=== PATIENT | female | born 1940 | race Caucasian/White ===

== ENCOUNTER 2016-06-09 19:29 | Emergency (ER) | payer MEDICARE, OTHER ==
[2016-06-09] MEDS ORDERED: IBUPROFEN 400 MG TABLET PO STA (21:47)
[2016-06-09] MEDS ORDERED: IBUPROFEN 400 MG TABLET PO ONE (21:52)
[2016-06-09] MEDS ORDERED: DEXAMETHASONE 10 MG/ML VIAL PO STA (23:12)
[2016-06-09] MEDS ORDERED: DEXAMETHASONE 10 MG/ML VIAL ONE (23:15)
== END 2016-06-09 23:20 | disposition home or self-care (01) ==
DX: M54.5 Low back pain (principal); W18.39XA Other fall on same level, initial encounter; Y92.009 Unspecified place in unspecified non-institutional (private) residence as the place of occurrence of the external cause; E78.00 Pure hypercholesterolemia, unspecified; E03.9 Hypothyroidism, unspecified; M19.90 Unspecified osteoarthritis, unspecified site
CPT/HCPCS: 72100; 99283; 99284; A9270

== ENCOUNTER 2016-06-17 11:45 | Outpatient (CLI) | payer MEDICARE, OTHER | END 2016-06-17 11:46 | DX: R31.9 Hematuria, unspecified (principal); R32 Unspecified urinary incontinence ==

== ENCOUNTER 2016-06-17 13:48 | Outpatient (CLI) | payer MEDICARE, OTHER | END 2016-06-17 13:49 | disposition home or self-care (01) | DX: M47.816 Spondylosis without myelopathy or radiculopathy, lumbar region (principal); M47.817 Spondylosis without myelopathy or radiculopathy, lumbosacral region; M51.36 Other intervertebral disc degeneration, lumbar region; M51.37 Other intervertebral disc degeneration, lumbosacral region ==

== ENCOUNTER 2016-08-21 13:11 | Outpatient (CLI) | payer MEDICARE, OTHER | END 2016-08-21 13:12 | disposition home or self-care (01) | DX: R31.9 Hematuria, unspecified (principal) ==

== ENCOUNTER 2016-09-30 13:23 | Emergency (ER) | payer MEDICARE, OTHER ==
--- NOTE | 2016-09-30 13:32 | ED Physician Documentation ---
PD HPI ALTERED MENTAL STATUS - Stated complaint Stated Complaint: SHAKY/HEADACHE - History obtained from History obtained from: Patient, Family - History of Present Illness Timing - onset: How many days ago (1 1/2 days ago (Wednesday night) while in kitchen doing dishes, had onset of expressive aphasia. She knew what she wanted to say bu could not get words out. Lasted about 10-15 minutes, then improved. Had onset of some headache after that. No visual changes, no focal weaknesses, no further problems talking. Continues with some headache today, called PMD and was told to come to ED.) Timing - duration: Minutes (10-15) Timing - details: Abrupt onset, Now resolved Quality / character: Other (trouble speaking and felt some confused from just few minutes.) Associated symptoms: Headache (continues the past 1 1/2 days.). No: Fever, Stiff neck, Cough, NVD, General weakness, Focal weakness Contributing factors: No: Anticoagulated, Diabetic, New medication, Recent illness, Recent injury Basline status: Alert and oriented X 3, Ambulatory Similar symptoms before: Has not had sx before Recently seen: Not recently seen Review of Systems Ten Systems: 10 systems reviewed and negative Constitutional: denies: Fever, Chills Nose: denies: Rhinorrhea / runny nose, Congestion Throat: denies: Sore throat Cardiac: denies: Chest pain / pressure, Palpitations Respiratory: denies: Dyspnea, Cough GI: denies: Abdominal Pain, Nausea, Vomiting, Diarrhea : denies: Dysuria, Frequency Skin: denies: Rash, Lesions Musculoskeletal: denies: Neck pain, Back pain Neurologic: reports: Headache. 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, Hysterectomy HEENT: Cataracts - Present Medications Home Medications: Ambulatory Orders Medication Instructions Recorded Confirmed Levothyroxine Sodium 137 mcg PO DAILY 08/29/15 09/30/16 Metoprolol Succinate 50 mg PO DAILY 08/29/15 09/30/16 Pravastatin Sodium 20 mg PO DAILY 08/29/15 09/30/16 Venlafaxine HCl 37.5 mg PO DAILY 08/29/15 09/30/16 - Allergies Allergies/Adverse Reactions: Allergies Allergy/AdvReac Type Severity Reaction Status Date / Time codeine Allergy Nausea Verified 08/30/15 07:44 carola Allergy Severe Unknown Uncoded 08/30/15 07:44 - Living Situation Living Situation: reports: With family Living Arrangement: reports: At home - Social History Does the pt smoke?: No Does the pt drink ETOH?: No Does the pt have substance abuse?: No - Family History Family history: reports: Non contributory PD ED PE NORMAL - Vitals Vital signs reviewed: Yes - General General: Alert and oriented X 3, No acute distress, Well developed/nourished, Other - HEENT HEENT: Atraumatic, PERRL, EOMI, Ears normal, Pharynx benign - Neck Neck: Supple, no meningeal sign, No adenopathy, No JVD - Cardiac Cardiac: RRR, No murmur - Respiratory Respiratory: Clear bilaterally - Abdomen Abdomen: Soft, Non tender - Female Female : Deferred - Rectal Rectal: Deferred - Back Back: No CVA TTP - Derm Derm: Normal color, Warm and dry - Extremities Extremities: No tenderness to palpate, No edema, No calf tenderness / cord - Neuro Neuro: Alert and oriented X 3, dining room host 2-12 intact, No motor deficit, No sensory deficit, Normal speech, Other - Psych Psych: Normal mood, Normal affect Results - Vitals Vitals: Vital Signs - 24 hr 09/30/16 09/30/16 09/30/16 13:26 16:26 18:26 Temperature 36.9 C 36.7 C Heart Rate 72 65 60 Respiratory 19 18 18 Rate Blood Pressure 110/66 102/60 113/78 O2 Saturation 94 94 98 Oxygen O2 Source Room air - Labs Labs: Laboratory Tests 09/30/16 09/30/16 09/30/16 13:32 14:01 14:01 WBC 7.6 RBC 4.20 Hgb 13.9 Hct 40.4 MCV 96.1 MCH 33.1 H MCHC 34.5 RDW 13.3 Plt Count 330 MPV 6.8 L Neut # 4.3 Lymph # 2.0 Wagoner # 0.7 Eos # 0.5 Baso # 0.1 Absolute Nucleated RBC 0.00 Nucleated RBCs 0.0 ESR 10 Sodium Potassium Chloride Carbon Dioxide Anion Gap BUN Creatinine Estimated GFR (MDRD) Glucose POC Whole Bld Glucose 109 H Calcium Magnesium Total Bilirubin AST ALT Alkaline Phosphatase Total Protein Albumin Globulin Albumin/Globulin Ratio Lipase 09/30/16 14:01 WBC RBC Hgb Hct MCV MCH MCHC RDW Plt Count MPV Neut # Lymph # Wagoner # Eos # Baso # Absolute Nucleated RBC Nucleated RBCs ESR Sodium 136 Potassium 4.3 Chloride 104 Carbon Dioxide 24 Anion Gap 8.0 BUN 19 Creatinine 0.7 Estimated GFR (MDRD) 82 L Glucose 88 POC Whole Bld Glucose Calcium 9.2 Magnesium 2.1 Total Bilirubin 0.5 AST 27 ALT 18 Alkaline Phosphatase 77 Total Protein 6.6 L Albumin 4.0 Globulin 2.6 Albumin/Globulin Ratio 1.5 Lipase 74 H - Rads (name of study) head CT Radiology: Prelim report reviewed (no acute process) Brain MRI Radiology: Prelim report reviewed (No acute infarct, mass, other findings acute. Microvascular disease and small old lacunar infarct noted. ) PD MEDICAL DECISION MAKING - ED course Complexity details: reviewed results (CT normal, so consider TIA. But with headache since the time, would be concerned for smaller site. Can get MRI with contrast to evaluate for lacunar stroke, other lesions (MS, etc).), considered differential, d/w patient Departure - Departure Disposition: 01 Home, Self Care Clinical Impression: TIA (transient ischemic attack) Qualifiers: Transient cerebral ischemia type: unspecified Qualified Code(s): G45.9 - Transient cerebral ischemic attack, unspecified Headache Qualifiers: Headache type: unspecified Headache chronicity pattern: acute headache Intractability: not intractable Qualified Code(s): R51 - Headache Condition: Stable Record reviewed to determine appropriate education?: Yes Instructions: ED Cephalgia Unspecified, ED Transient Ischemic Attack Follow-Up: Alyssa Ross PA-C [Primary Care Provider] - Comments: Increase your aspirin from one to two baby aspirins daily. Follow up PCP next week, call tomorrow for an appt. Tylenol if needed for headache. Discharge Date/Time: 09/30/16 18:32
[2016-09-30] MEDS ORDERED: ACETAMINOPHEN 325 MG TABLET PO STA (13:59)
[2016-09-30] MEDS ORDERED: ACETAMINOPHEN 325 MG TABLET PO ONE (14:03)
[2016-09-30 14:18] LABS: BASOPHILS # (AUTO) 0.1 10^3/uL (0.0-0.1); BASOPHILS % (AUTO) 1.2 %; EOSINOPHILS # (AUTO) 0.5 10^3/uL (0.0-0.7); EOSINOPHILS % (AUTO) 6.3 %; HCT - HEMATOCRIT 40.4 % (37.0-47.0); HGB - HEMOGLOBIN 13.9 g/dL (12.0-16.0); LYMPHOCYTES % (AUTO) 26.8 %; MEAN CORPUSCULAR HEMOGLOBIN 33.1 pg (27.0-31.0); MEAN CORPUSCULAR HGB CONC 34.5 g/dL (32.0-36.0); MEAN CORPUSCULAR VOLUME 96.1 fL (81.0-99.0); MEAN PLATELET VOLUME 6.8 fL (7.9-10.8); MONOCYTES # (AUTO) 0.7 10^3/uL (0.0-1.0); MONOCYTES % (AUTO) 8.8 %; NEUTROPHILS # (AUTO) 4.3 10^3/uL (1.5-6.6); NEUTROPHILS % (AUTO) 56.9 %; RED CELL DISTRIBUTION WIDTH 13.3 % (12.0-15.0); UNCORRECTED WHITE BLOOD COUNT 7.6 x10^3/uL; WHITE BLOOD COUNT 7.6 x10^3/uL (4.8-10.8)
[2016-09-30 14:30] LABS: ALBUMIN/GLOBULIN RATIO 1.5 (1.0-2.2); BILIRUBIN,TOTAL 0.5 mg/dL (0.2-1.0); CALCIUM 9.2 mg/dL (8.5-10.3); CREATININE 0.7 mg/dL (0.4-1.0); MAGNESIUM 2.1 mg/dL (1.7-2.8); POTASSIUM 4.3 mmol/L (3.5-5.0); TOTAL PROTEIN 6.6 g/dL (6.7-8.2)
--- NOTE | 2016-09-30 14:39 | CT Preliminary Report ---
Exam: CT Head W/O IMPRESSION: Generalized age-related cortical atrophic changes without evidence of acute intracranial abnormality. [facility] SITE ID: [id number]
--- NOTE | 2016-09-30 14:41 | CT Report ---
EXAM: CT HEAD EXAM DATE: 09/30/2016 02:26 PM. CLINICAL HISTORY: Headache and aphasia 2 days ago. COMPARISON: None. TECHNIQUE: Multiaxial CT images were obtained from the foramen magnum to the vertex. IV contrast: Non e. Reformats: Coronal. In accordance with CT protocol optimization, one or more of the following dose reduction techniques w ere utilized for this exam: automated exposure control, adjustment of mA and/or KV based on patient s ize, or use of iterative reconstructive technique. FINDINGS: Parenchyma: No intraparenchymal hemorrhage. No evidence of mass, midline shift, or CT findings of acu te infarction. Escudero-white differentiation is distinct. Extraaxial Spaces: Normal for age. No subdural or epidural collections. Ventricles: The ventricles and cortical sulci are enlarged, consistent with age-related tissue loss. Sinuses: Imaged paranasal sinuses, orbits, and mastoids show no significant abnormality. Bones: Unremarkable. Other: Mild chronic microangiopathic white matter changes. IMPRESSION: Generalized age-related cortical atrophic changes without evidence of acute intracranial abnormality. [facility] Referring Provider Line: [phone] SITE ID: [id number]
--- NOTE | 2016-09-30 17:50 | MRI Preliminary Report ---
Exam: MRI Brain W/WO Impression: No acute infarct, mass lesion, or other discrete acute parenchymal process identified. There are find ings of small vessel angiopathy and prior lacunar infarcts. SITE ID: [id number]
--- NOTE | 2016-09-30 17:52 | MRI Report ---
EXAM: MRI BRAIN WITHOUT CONTRAST COMPARISON: CT head, 09/30/2016. CLINICAL HISTORY: Headache TECHNIQUE: Multiplanar multisequence imaging is performed through the head without contrast. FINDINGS: Diffusion-weighted imaging shows no acute infarct. Gradient sequence shows no evident prior parenchymal hemorrhage. T2 FLAIR imaging shows multifocal white matter T2 prolongation, no mass lesions. Ventricular size is normal. Vascular flow voids which are unremarkable. Pituitary fossa, clivus and foramen magnum are unremarkable. No calvarial signal abnormality. Visualized orbits, paranasal sinuses and mastoids are unremarkable. No abnormal elevated T2 signal in the vessels. Impression: No acute infarct, mass lesion, or other discrete acute parenchymal process identified. There are find ings of small vessel angiopathy and prior lacunar infarcts. Referring Provider Line: [phone] SITE ID: [id number]
[2016-09-30] MEDS ORDERED: ASPIRIN CHEW 81 MG TABLET PO STA (18:19)
[2016-09-30] MEDS ORDERED: KETOROLAC 60 MG/2 ML VIAL IVP STA (18:19)
[2016-09-30] MEDS ORDERED: ASPIRIN CHEW 81 MG TABLET ONE (18:21)
[2016-09-30] MEDS ORDERED: KETOROLAC 30 MG/ML VIAL ONE (18:21)
[2016-09-30 18:27] VITALS: BP 113/78
== END 2016-09-30 18:32 | disposition home or self-care (01) ==
LOC: ED 13:23
DX: G45.9 Transient cerebral ischemic attack, unspecified (principal); R51 Headache; E03.9 Hypothyroidism, unspecified
CPT/HCPCS: 36415; 70450; 70553; 80053; 83690; 83735; 85025; 85651; 93005; 96374; 99283; 99285; A9270

== ENCOUNTER 2016-10-02 10:23 | Outpatient (CLI) | payer MEDICARE, OTHER | END 2016-10-02 10:24 | disposition home or self-care (01) | LOC: LAB.R 10:23 | PROVIDERS: ATTEND Physician Assistant Medical | DX: E03.9 Hypothyroidism, unspecified (principal); Z79.899 Other long term (current) drug therapy | CPT/HCPCS: 84443 ==

== ENCOUNTER 2016-11-03 10:17 | Outpatient (CLI) | payer MEDICARE, OTHER ==
--- NOTE | 2016-11-06 07:22 | Mammography Report ---
DIGITAL BILATERAL SCREENING MAMMOGRAM: 11/03/2016 CLINICAL HISTORY: A 76-year-old female in for routine screening mammogram. Patient does not know he r family history. She was adopted. Patient has had no breast surgeries. COMPARISON: 01/06/2012, 03/07/2013, 11/09/2014, 11/04/2015 TECHNIQUE: Craniocaudad and oblique lateral views of each breast were obtained with Hologic Full Fie ld digital mammography. FINDINGS: Heterogeneously dense breasts are noted bilaterally. A 1.4 cm rounded asymmetrical densit y is noted in the 6 o'clock position of the right breast 2.5 cm inferior to the nipple. This area ap pears minimally progressive in size as compared to preceding exams. Recommend patient return for con ed-down compression craniocaudad and oblique lateral view as well as a mediolateral view for further evaluation. Also recommend a right breast ultrasound be obtained for further evaluation. No significant clusters of calcification are detected in the breasts. No additional changes are seen . IMPRESSION: A 1.4 CM ASYMMETRICAL DENSITY IS NOTED IN THE 6 O'CLOCK POSITION OF THE RIGHT BREAST. T HIS AREA APPEARS MILDLY PROGRESSIVE COMPARED TO PRECEDING EXAMS. RECOMMEND PATIENT RETURN FOR ADD ITIONAL VIEWS OF THE RIGHT BREAST AND RIGHT BREAST ULTRASOUND FOR FURTHER EVALUATION. BIRADS CATEGORY 0 - INCOMPLETE. NEEDS ADDITIONAL IMAGING EVALUATION. ADDITIONAL VIEWS OF THE RIGHT BREAST AND RIGHT BREAST ULTRASOUND. STANDARD QUALIFYING STATEMENTS 1. This examination was reviewed with the aid of Computer-Aided Detection (CAD). 2. A negative or benign imaging report should not delay biopsy if clinically suspicious findings are present. Consider surgical consultation if warranted. More than 5% of cancers are not identified by i maging. 3. Dense breasts may obscure an underlying neoplasm. JOB #: [id number] EXT JOB #:[id number]
== END 2016-11-03 10:18 | disposition home or self-care (01) ==
LOC: DI.S 10:17
PROVIDERS: ATTEND Physician Assistant Medical
DX: Z12.31 Encounter for screening mammogram for malignant neoplasm of breast (principal); N63 Unspecified lump in breast
CPT/HCPCS: 77067

== ENCOUNTER 2016-11-13 19:21 | Emergency (ER) | payer MEDICARE, OTHER ==
[2016-11-13] MEDS ORDERED: ACETAMINOPHEN 325 MG TABLET PO STA (21:32)
[2016-11-13] MEDS ORDERED: ACETAMINOPHEN 325 MG TABLET PO ONE (21:36)
--- NOTE | 2016-11-13 22:25 | CT Preliminary Report ---
Exam: CT Temporal Bones W/O IMPRESSION: 1. Interval development of acute right otitis externa compared to the brain CT from 09/30/2016. 2. No involvement of the middle or inner ear on the right. 3. Normal left temporal bone. [facility] SITE ID: [id number]
--- NOTE | 2016-11-13 22:27 | CT Report ---
EXAM: CT TEMPORAL BONE EXAM DATE: 11/13/2016 09:24 PM. CLINICAL HISTORY: Right-sided ear pain for 2 weeks. COMPARISON: Brain CT and MRI from 09/30/2016. TECHNIQUE: Routine axial CT imaging performed through the temporal bones. IV contrast: None. Reconstr uctions: Coronal, sagittal bone windows. In accordance with CT protocol optimization, one or more of the following dose reduction techniques w ere utilized for this exam: automated exposure control, adjustment of mA and/or KV based on patient s ize, or use of iterative reconstructive technique. FINDINGS: RIGHT: External auditory canal: There is marked interval soft tissue thickening of the carpentry professional portion of the external auditory canal, consistent with acute otitis externa.. Middle ear and ossicles: Tympanic membrane is normal. The middle ear, including Prussak's space, is c lear. The scutum and ossicles are intact without evidence of bony erosion or dislocation. Cochlea and vestibular apparatus: The cochlea and vestibular apparatus demonstrate normal morphology. No evidence of semicircular canal dehiscence. The vestibular aqueduct is normal size. Internal auditory canal: Patent without evidence of mass lesion. Mastoid air cells: Clear. Other: The course of the facial nerve is normal. LEFT: External auditory canal: Patent without significant filling defect. Middle ear and ossicles: Tympanic membrane is normal. The middle ear, including Prussak's space, is c lear. The scutum and ossicles are intact without evidence of bony erosion or dislocation. Cochlea and vestibular apparatus: The cochlea and vestibular apparatus demonstrate normal morphology. No evidence of semicircular canal dehiscence. The vestibular aqueduct is normal size. Internal auditory canal: Patent without evidence of mass lesion. Mastoid air cells: Clear. Other: The course of the facial nerve is normal. IMPRESSION: 1. Interval development of acute right otitis externa compared to the brain CT from 09/30/2016. 2. No involvement of the middle or inner ear on the right. 3. Normal left temporal bone. [facility] Referring Provider Line: [phone] SITE ID: [id number]
[2016-11-13] MEDS ORDERED: CIPROFLOX/DEXAMETH OTIC DROPS RIGHTEAR STA (22:34)
--- NOTE | 2016-11-13 22:34 | ED Physician Documentation ---
PD HPI HEENT - Stated complaint Stated Complaint: R EAR PX - Chief complaint Chief Complaint: Heent - History obtained from History obtained from: Patient - History of Present Illness Timing - onset: How many weeks ago (1) Timing - details: Gradual onset, Still present Location: Right ear Associated symptoms: Fever, Swollen nodes. No: Congestion, Rhinorrhea, Trismus Similar symptoms before: No diagnosis Recently seen: Clinic - Additional information Additional information: Patient is a 76 year old female with no significant past medical history who is presenting to the emergency department for ear pain. Patient states that the symptoms started about a week ago. Patient saw her pmd, but stated that there were no abnormality. Patient states that the pain has become more and more severe and her ear is now swelling. Review of Systems Constitutional: reports: Fever. denies: Chills, Myalgias Eyes: denies: Loss of vision, Photophobia Ears: reports: Ear pain, Drainage/discharge Nose: denies: Rhinorrhea / runny nose, Congestion, Sinus pressure / pain Throat: denies: Dental pain / toothache, Sore throat Cardiac: denies: Chest pain / pressure Respiratory: denies: Cough GI: denies: Nausea, Vomiting : denies: Dysuria, Frequency Skin: denies: Rash, Lesions Neurologic: denies: Syncope, Seizure, Head injury Immunocompromised: denies: Immunocompromised PD PAST MEDICAL HISTORY - Past Medical History Past Medical History: Yes Cardiovascular: High cholesterol, Arrhythmia, Other Respiratory: None Neuro: None Endocrine/Autoimmune: HyPOthyroidism GI: None 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 FREIGHT 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: None : None HEENT: None Psych: Depression, Anxiety, Panic attacks Musculoskeletal: Osteoarthritis Derm: None - Past Surgical History Past Surgical History: Yes General: Appendectomy, Colonoscopy /INCOMING FREIGHT CLERK: section, Hysterectomy HEENT: Cataracts - Present Medications Home Medications: Ambulatory Orders Medication Instructions Recorded Confirmed Levothyroxine Sodium 137 mcg PO DAILY 08/29/15 11/13/16 Metoprolol Succinate 50 mg PO DAILY 08/29/15 11/13/16 Pravastatin Sodium 20 mg PO DAILY 08/29/15 11/13/16 Venlafaxine HCl 37.5 mg PO DAILY 08/29/15 11/13/16 - Allergies Allergies/Adverse Reactions: Allergies Allergy/AdvReac Type Severity Reaction Status Date / Time codeine Allergy Nausea Verified 11/13/16 19:35 carola Allergy Severe Unknown Uncoded 11/13/16 19:35 - Social History Does the pt smoke?: No Smoking Status: Never smoker Does the pt drink ETOH?: No Does the pt have substance abuse?: No - Immunizations Immunizations are current?: Yes - POLST Patient has POLST: No PD ED PE EXPANDED - HEENT HEENT: Other (tenderness and swelling of right ear and pinna. Moderate amount of discharge in auditory canal). No: R TM red, R TM dull, R TM bulging Results - Vitals Vitals: Vital Signs - 24 hr 11/13/16 22:48 Heart Rate 71 Respiratory 17 Rate Blood Pressure 110/68 O2 Saturation 99 Oxygen O2 Source Room air - Rads (name of study) ct temporal bones Radiology: Final report received (no acute abnormalities) PD MEDICAL DECISION MAKING - ED course Complexity details: reviewed old records, reviewed results, re-evaluated patient , considered differential, d/w patient ED course: Patient was seen and examined at bedside. Patient was treated with motrin for pain. Due to the fear of mastoiditis imaging was ordered. When patient returned the results were reviewed. Patient had no mastoiditis. Findings otherwise were consistent with otitis media. Patient was treated with ciprodex and was stable for discharge with outpatient follow up. Departure - Departure Disposition: 01 Home, Self Care Clinical Impression: Otitis externa Condition: Good Instructions: ED Otitis Externa Follow-Up: Alyssa Ross PA-C [Primary Care Provider] - Within 1 week Comments: Your symptoms today are being caused by an external ear infection. You will need to take the drops 4 times a day. You can take motrin or tylenol as needed fro pain and you can follow up with your pmd if your symptoms persist for more than the next week. You should return to the emergency department for change in mental status, new worsening or uncontrollable symptoms. Discharge Date/Time: 11/13/16 22:49
[2016-11-13] MEDS ORDERED: CIPROFLOX/DEXAMETH OTIC DROPS ONE (22:41)
[2016-11-13 22:49] VITALS: BP 110/68
== END 2016-11-13 22:49 | disposition home or self-care (01) ==
LOC: ED 19:21
DX: H60.91 Unspecified otitis externa, right ear (principal); E78.00 Pure hypercholesterolemia, unspecified; I49.9 Cardiac arrhythmia, unspecified; E03.9 Hypothyroidism, unspecified; M19.90 Unspecified osteoarthritis, unspecified site
CPT/HCPCS: 70480; 99283; A9270

== ENCOUNTER 2016-11-24 16:11 | Outpatient (CLI) | payer MEDICARE, OTHER | END 2016-11-24 16:12 | disposition critical access hospital (66) | LOC: EMS 16:11 | PROVIDERS: ATTEND Surgery | DX: R41.82 Altered mental status, unspecified (principal) | CPT/HCPCS: A0425; A0429 ==

== ENCOUNTER 2016-11-24 16:33 | Observation (INO) | payer MEDICARE, OTHER ==
--- NOTE | 2016-11-24 16:58 | ED Physician Documentation ---
History of Present Illness - Stated complaint Stated Complaint: AMS - Chief complaint Chief Complaint: Neuro - Additonal information Additional information: hx from EMS and pt 76 y/o f visiting locally last seen nl and independent 5 hr ago daughter returned home and found pt acutely confused cannot remember recent events pt denies fall denies GREGORIO CP AP denies fever cough NVD denies med changes EtOH and drugs Review of Systems Constitutional: denies: Fever, Chills Cardiac: denies: Chest pain / pressure, Palpitations Respiratory: denies: Dyspnea, Cough GI: denies: Abdominal Pain, Nausea, Vomiting Neurologic: reports: Altered mental status Endocrine: denies: Easy bruising / bleeding Immunocompromised: denies: Immunocompromised PD PAST MEDICAL HISTORY - Past Medical History Cardiovascular: High cholesterol, Arrhythmia, Other Respiratory: None Neuro: None Endocrine/Autoimmune: HyPOthyroidism GI: None 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 : None HEENT: None Psych: Depression, Anxiety, Panic attacks Musculoskeletal: Osteoarthritis Derm: None - Past Surgical History Past Surgical History: Yes General: Appendectomy, Colonoscopy /COLD MILL OPERATOR: section, Hysterectomy HEENT: Cataracts - Present Medications Home Medications: Ambulatory Orders Medication Instructions Recorded Confirmed Levothyroxine Sodium 137 mcg PO DAILY 08/29/15 11/24/16 Metoprolol Succinate 50 mg PO DAILY 08/29/15 11/24/16 Pravastatin Sodium 20 mg PO DAILY 08/29/15 11/24/16 Venlafaxine HCl 37.5 mg PO DAILY 08/29/15 11/24/16 - Allergies Allergies/Adverse Reactions: Allergies Allergy/AdvReac Type Severity Reaction Status Date / Time codeine Allergy Nausea Verified 11/24/16 16:46 carola Allergy Severe Unknown Uncoded 11/24/16 16:46 - Social History Does the pt smoke?: Yes Smoking Status: Current every day smoker Does the pt drink ETOH?: No Does the pt have substance abuse?: No - Immunizations Immunizations are current?: Yes - POLST Patient has POLST: No PD ED PE NORMAL - Vitals Vital signs reviewed: Yes - General General: No: Alert and oriented X 3 (knows name no place year president etc) - Neck Neck: Supple, no meningeal sign - Cardiac Cardiac: RRR - Respiratory Respiratory: No respiratory distress, Clear bilaterally - Abdomen Abdomen: Soft, Non tender - Derm Derm: Normal color - Neuro Neuro: No motor deficit, No sensory deficit. No: Alert and oriented X 3 - Psych Psych: Normal mood Results - Vitals Vitals: Vital Signs - 24 hr 11/24/16 11/24/16 11/24/16 16:35 18:30 20:37 Temperature 36.8 C Heart Rate 76 70 72 Respiratory 14 14 15 Rate Blood Pressure 120/72 113/66 119/60 O2 Saturation 97 96 11/24/16 21:04 Temperature Heart Rate Respiratory Rate Blood Pressure O2 Saturation 95 Oxygen O2 Source Room air - EKG (time done) 1659 Rate: Rate (enter#) (71) Rhythm: NSR Intervals: Normal HI Ischemia: Normal ST segments - Labs Labs: Laboratory Tests 11/24/16 11/24/16 11/24/16 17:00 17:00 18:00 WBC 8.1 RBC 4.31 Hgb 14.3 Hct 41.7 MCV 96.8 MCH 33.2 H MCHC 34.3 RDW 12.9 Plt Count 399 MPV 6.5 L Neut # 5.5 Lymph # 1.6 Teller # 0.6 Eos # 0.2 Baso # 0.1 Absolute Nucleated RBC 0.00 Nucleated RBCs 0.0 Sodium 137 Potassium 4.3 Chloride 101 Carbon Dioxide 26 Anion Gap 10.0 BUN 21 H Creatinine 0.9 Estimated GFR (MDRD) 61 L Glucose 92 Calcium 9.5 Urine Color YELLOW Urine Clarity CLEAR Urine pH 6.0 Ur Specific [place] 1.010 Urine Protein NEGATIVE Urine Glucose (UA) NEGATIVE Urine Ketones NEGATIVE Urine Occult Blood NEGATIVE Urine Nitrite NEGATIVE Urine Bilirubin NEGATIVE Urine Urobilinogen 0.2 (NORMAL) Ur Leukocyte Esterase TRACE H Urine RBC 0-5 Urine WBC 6-10 H Ur Squamous Epith Cells MOD Squamous H Urine Bacteria None Seen Ur Microscopic Review INDICATED Urine Culture Comments NOT INDICATED - Rads (name of study) CTH Radiology: See rad report (no acute) CXR Radiology: See rad report (no acute) PD MEDICAL DECISION MAKING - ED course ED course: acute AMS unclear etiology nom infectious source neg CTH will admit for further eval perhaps MRI hospitalist to ER to see pt family also arrived and advised pt is not from [place] as she said - she lives locally and has [facility] and had neuro eval here as well Departure - Departure Disposition: ED Place in Observation Clinical Impression: Altered mental status Discharge Date/Time: 11/24/16 22:10
[2016-11-24 17:09] LABS: BASOPHILS # (AUTO) 0.1 10^3/uL (0.0-0.1); BASOPHILS % (AUTO) 1.2 %; EOSINOPHILS # (AUTO) 0.2 10^3/uL (0.0-0.7); EOSINOPHILS % (AUTO) 3.1 %; HCT - HEMATOCRIT 41.7 % (37.0-47.0); HGB - HEMOGLOBIN 14.3 g/dL (12.0-16.0); LYMPHOCYTES # (AUTO) 1.6 10^3/uL (1.5-3.5); LYMPHOCYTES % (AUTO) 19.9 %; MEAN CORPUSCULAR HEMOGLOBIN 33.2 pg (27.0-31.0); MEAN CORPUSCULAR HGB CONC 34.3 g/dL (32.0-36.0); MEAN CORPUSCULAR VOLUME 96.8 fL (81.0-99.0); MEAN PLATELET VOLUME 6.5 fL (7.9-10.8); MONOCYTES # (AUTO) 0.6 10^3/uL (0.0-1.0); MONOCYTES % (AUTO) 7.6 %; NEUTROPHILS # (AUTO) 5.5 10^3/uL (1.5-6.6); NEUTROPHILS % (AUTO) 68.2 %; RED BLOOD COUNT 4.31 10^6/uL (4.20-5.40); RED CELL DISTRIBUTION WIDTH 12.9 % (12.0-15.0); UNCORRECTED WHITE BLOOD COUNT 8.1 x10^3/uL; WHITE BLOOD COUNT 8.1 x10^3/uL (4.8-10.8)
[2016-11-24 17:19] LABS: CALCIUM 9.5 mg/dL (8.5-10.3); CREATININE 0.9 mg/dL (0.4-1.0); POTASSIUM 4.3 mmol/L (3.5-5.0)
[2016-11-24 18:32] LABS: BILIRUBIN,URINE NEGATIVE (NEGATIVE)
--- NOTE | 2016-11-24 18:32 | XRAY Preliminary Report ---
Exam: XR Chest 2 View PA/LAT IMPRESSION: No acute disease. [facility] SITE ID: [id number]
[2016-11-24 18:33] LABS: UA w/ MICROSCOPIC CHARGE YES
--- NOTE | 2016-11-24 18:34 | CT Preliminary Report ---
Exam: CT Head W/O IMPRESSION: No acute intracranial CT abnormality. [facility] SITE ID: [id number]
--- NOTE | 2016-11-24 18:35 | XRAY Report ---
EXAM: CHEST RADIOGRAPHY EXAM DATE: 11/24/2016 06:05 PM. CLINICAL HISTORY: Ams. COMPARISON: 12/19/2015. TECHNIQUE: 2 views. FINDINGS: Lungs/Pleura: Hyperexpanded, but clear. No effusion or pneumothorax. Mediastinum: Heart and mediastinal contours are unremarkable. Other: Osteopenia, degenerative changes. Previous resection of right clavicle head. IMPRESSION: No acute disease. [facility] Referring Provider Line: [phone] SITE ID: [id number]
--- NOTE | 2016-11-24 18:37 | CT Report ---
EXAM: CT HEAD EXAM DATE: 11/24/2016 06:16 PM. CLINICAL HISTORY: Confusion. COMPARISON: 09/30/2016. TECHNIQUE: Multiaxial CT images were obtained from the foramen magnum to the vertex. IV contrast: Non e. Reformats: Coronal. In accordance with CT protocol optimization, one or more of the following dose reduction techniques w ere utilized for this exam: automated exposure control, adjustment of mA and/or KV based on patient s ize, or use of iterative reconstructive technique. FINDINGS: Parenchyma: No intraparenchymal hemorrhage. No evidence of mass, midline shift, or CT findings of inf arction. Escudero-white differentiation is distinct. Extraaxial Spaces: Normal for age. No subdural or epidural collections identified. Ventricles: Normal in size and position. Sinuses: Imaged paranasal sinuses, orbits, and mastoids show no significant abnormality. Bones: No evidence of fracture or calvarial defect. Other: None. IMPRESSION: No acute intracranial CT abnormality. [facility] Referring Provider Line: [phone] SITE ID: [id number]
[2016-11-24 18:47] LABS: UR CULTURE IF IND NOT INDICATED
[2016-11-24] MEDS ORDERED: HYDROcod/ACETAM 5/325 MG TABLET PO PRN ×2 (21:33→22:34)
[2016-11-24] MEDS ORDERED: ONDANSETRON 4 MG/2 ML VIAL IVP PRN ×2 (21:33→22:34)
[2016-11-24] MEDS ORDERED: ACETAMINOPHEN 325 MG TABLET PO PRN ×2 (21:33→22:34)
[2016-11-24] MEDS ORDERED: ONDANSETRON ODT 4 MG TABLET TL PRN ×2 (21:33→22:34)
[2016-11-24] MEDS ORDERED: SODIUM CHLORIDE FLUSH 0.9% 10 ML SYRINGE IVP PRN ×2 (21:33→22:34)
[2016-11-24] MEDS ORDERED: SODIUM CHLORIDE FLUSH 0.9% 10 ML SYRINGE IVP SCH (22:00)
--- NOTE | 2016-11-24 22:31 | HISTORY & PHYSICAL EXAMINATION ---
Chief Complaint - Chief Complaint Chief Complaint: inability to remember, sudden in onset History of Present Illness - Admitted From Admitted From:: Emergency Room - History Obtained From Records Reviewed: [facility], and ER visit today History obtained from: ER MD, daughter and some from patient - History of Present Illness HPI Comment/Other: 76-year-old white female who moved to [facility] in 2013 and lives with her daughter. She lives independently in her own home and still drives, cleans the house, and completely takes care of her self without issues. Prior to living in [facility] she had a history of TIAs that presented as visual disturbances and jagged edge lights. Those records are unavailable to me. In September of this year she presented to the emergency room at [facility] with a headache for a couple of days and some expressive aphasia. It resolved by the time she got to the emergency room and she was sent home as a TIA after CT of head showed no new illness. A subsequent outpatient MRI showed her to have old lacunar infarcts but no new changes. She has old microvascular changes. She was last seen by her daughter who left their home for errands. When her daughter came home 5 hours later, she found her mom unable to remember anything. Repetitive questions. A question would be answered and an asked again 45 seconds later because she couldn't remember the answer. She had some issues remembering her daughter's name. Initially she couldn't remember that she lives on [facility] and kept asking where she was. There is no antecedent history of trauma, fevers or illness, heavy lifting, falls. She does have irritable bowel syndrome with constipation. That is unchanged. There were no focal symptoms of loss of strength or aphasia or visual changes or headache. She was seen in the emergency room by Dr. Trish Joaquin and CT of the head is negative with a normal CBC/BMP/urinalysis. Vitals are normal. Other than the memory loss and nothing else is found on physical exam. The patient is now placed in observation. Review of Systems - Constitutional Constitutional: denies: Fatigue, Fever, Chills, Malaise, Weakness, Poor appetite , Diaphoresis, Night sweats - Eyes Eyes: denies: Pain, Irritation, Amaurosis, Blurred vision, Spots in vision, Field loss, Vision loss, Dipolpia - Ears, Nose & Throat Ears, Nose & Throat: denies: Ear pain (but had some ear pain in October), Hearing loss, Hearing aids, Tinnitus, Vertigo - Cardiovascular Cariovascular: denies: Irregular heart rate, Palpitations, Chest pain, Lightheadedness, Syncope, Exertional dyspnea - Respiratory Respiratory: denies: Cough, Sputum production, Wheezing, Orthopnea, SOB at rest , SOB with exertion, Apnea - Gastrointestinal Gastrointestinal: reports: Constipation. denies: Abdominal pain, Abdominal distention, Diarrhea, Change in bowel habits, Nausea, Vomiting - Genitourinary Genitourinary: denies: Dysuria, Frequency, Urgency, Hematuria, Flank pain - Musculoskeletal Musculoskeletal: reports: Back pain (does have some off and on and has been evaulated). denies: Muscle pain, Muscle aches - Integumentary Integumentary: denies: Rash, Pruritis, Lesions - Neurological Neurological: reports: Headache (in the past but not tonight), Memory problems ( tonight). denies: General weakness, Focal weakness, Numbness, Seizures, Incoordination - Psychiatric Psychiatric: reports: Depression (since the of her around 2012. still misses him a lot and can get sad), Anxiety (occasionally). denies: Suicidal, Delusions, Hallucinations - Endocrine Endocrine: denies: Polyuria, Polydypsia, Polyphagia - Hematologic/Lymphatic Hematologic/Lymphatic: denies: Anemia, Bruising, Petechiae, Blood clots History - Past Medical History Cardiovascular: reports: High cholesterol, Arrhythmia (palpitations but no afib) Respiratory: reports: None Neuro: reports: None Endocrine/Autoimmune: reports: HyPOthyroidism GI: reports: Colon polyps (scope in 2009 with benigh rectal polyp, repeat 2016 with Mychal and negative), Chronic constipation, Other (Irritable bowel syndrome) PATENT DRAFTER: reports: Other (C2E3-1-7-9, of the full term pregancy 1 was stillbirth of one twin) : reports: Incontinence, Other (bladder repair) HEENT: reports: None, Other (cataract removal with lens implant) Psych: reports: Depression, Anxiety, Panic attacks Musculoskeletal: reports: Osteoarthritis, Chronic back pain (MRI in 2016 with mild spondylosis) Derm: reports: None MRSA Hx?: No - Past Surgical History General: reports: Appendectomy, Colonoscopy /PATENT DRAFTER: reports: section, Hysterectomy HEENT: reports: Cataracts - Family & Social History Family History Comment/Other: she was adopted so doesn't know any family history, 1 surviving child is healthy. Lost her daughter's twin with stillbirth and 1 full term son to SIDS Living arrangement: At home, Other ( from 2nd 2013. 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 ) Living Situation: With family (daughter since 2013.) - Substance History Use: Uses substance without health or social issues: Tobacco (1/3 to 1 ppd since the age of 15), Alcohol (none), Other (no recreational substances) - POLST Patient has POLST: No POLST Status: DNR (although she has no POLST states she wishes to be DNR if has cardiopulmonary arrest. Daughter confirms wishes.) Meds/Allgy - Home Medications Home Medications: Ambulatory Orders Medication Instructions Recorded Confirmed Levothyroxine Sodium 137 mcg PO DAILY 08/29/15 11/24/16 Metoprolol Succinate 50 mg PO DAILY 08/29/15 11/24/16 Pravastatin Sodium 20 mg PO DAILY 08/29/15 11/24/16 Venlafaxine HCl 37.5 mg PO DAILY 08/29/15 11/24/16 - Allergies Allergies/Adverse Reactions: Allergies Allergy/AdvReac Type Severity Reaction Status Date / Time codeine Allergy Nausea Verified 11/24/16 16:46 carola Allergy Severe Unknown Uncoded 11/24/16 16:46 Exam - Vital Signs Reviewed Vital Signs: Yes Vital Signs: Vital Signs x48h Temp Pulse Resp BP Pulse Ox 11/24/16 21:04 95 11/24/16 20:37 72 15 119/60 11/24/16 18:30 70 14 113/66 96 11/24/16 16:35 36.8 C 76 14 120/72 97 - Physical Exam General Appearance: positive: No acute distress, Alert Eyes Bilateral: positive: PERRL, EOMI ENT: positive: Pharynx nml, No signs of dehydration, Other (hair dyed purple around her face.) Neck: positive: Thyroid nml, No JVD. negative: Lymphadenopathy (R), Lymphadenopathy (L), Stiff neck, Carotid bruit Respiratory: positive: Chest non-tender. negative: Wheezes, Rales, Rhonchi Cardiovascular: positive: Regular rate & rhythm. negative: No murmur, Gallop/S4 , Friction rub Peripheral Pulses: positive: 2+ Abdomen: positive: Non-tender, No organomegaly, Nml bowel sounds, No distention Skin: positive: Color nml, No rash, Warm, Dry Extremities: positive: Non-tender, Full ROM, Nml appearance Neurologic/Psychiatric: positive: CN's nml (2-12), Motor nml, Sensation nml, Disoriented to place, Disoriented to time, Other (repetitive same questions and can't remember what I just told her). negative: Facial droop, Slurred/abnml speech, Depressed mood/affect Reflexes: Bicep (R): 1+, Bicep (L): 1+, Knee (R): 1+, Knee (L): 1+ Babinski Reflex: Right: Up, Left: Up Conclusion/Plan - Problem List (1) Transient global amnesia Conclusion/Plan: I have spoken to Neurology it web development consultant for Tele stroke at [facility]. Her old MRI did show evidence of old lacunar infarct. However her current presentation has no focal deficits, no gait ataxia and no nystagmus. Transient global amnesia is sometimes associated with temporary lack of venous return so he queried me about Valsalva, constipation, heavy lifting, trauma to the head, and all of this was negative. I have relayed this diagnosis to her daughter. The patient herself is in processing and can't remember anything I say. We anticipate recovery in 24-48 hours. In the meantime be patient and note that her questions will be repeated over and over again do to her illness. The neurology consult recommends MRI of the head as well as CT angiogram of head and neck. If she continues having symptoms beyond 48 hours, consider EEG to make sure we're manifestation of seizure disorders are present. They'll need to be done in the outpatient setting. Plan is for Observation with neuro checks in the next 24 hours and discharge after the studies have been done. (2) History of cerebral infarction Conclusion/Plan: micro infarcts of previous MRI. Will continue ASA, statin, and recommend strict BP control in the outpatient setting. Recommend she stop smoking because it will worsen vascular and microvascular disease. (3) Hyperlipidemia Conclusion/Plan: recheck fasting lipid panel. last done 2015 in EMR. Qualifiers: Hyperlipidemia type: pure hypercholesterolemia Qualified Code(s): E78.00 - Pure hypercholesterolemia, unspecified; E78.0 - Pure hypercholesterolemia (4) Tobacco abuse counseling Conclusion/Plan: because of vascular disease on MRI and current symptoms , recommend she stop. - Lab Results Fish Bones: 11/24/16 17:00 11/24/16 17:00 - Diagnostic Imaging Results Diagnostic Imaging Results: positive: Final report reviewed Issues/Core Measures - Anticipated LOS Anticipated Stay Length: Less than 2 midnights - DVT/VTE - Prophylaxis VTE/DVT Device ordered at admit?: Yes - Stroke - Rehab Assessment Rehab services assessment to be ordered?: No Not Ordered - Medical Reason: Not indicated
[2016-11-24] MEDS ORDERED: ASPIRIN EC 325 MG TABLET PO SCH (23:45)
[2016-11-25] MEDS ORDERED: IOPAMIDOL-300 100 ML VIAL IVP ONE (00:47)
--- NOTE | 2016-11-25 02:47 | CT Preliminary Report ---
Exam: CT Head Angio IMPRESSION: Head CT without and with contrast: No acute or focal intracranial abnormality. CT angiogram head: No significant abnormality identified. [facility] SITE ID: [id number]
--- NOTE | 2016-11-25 02:50 | CT Report ---
EXAM: CT ANGIOGRAM HEAD EXAM DATE: 11/25/2016 12:30 AM. CLINICAL HISTORY: Global amnesia. COMPARISON: Head CT 11/24/2016. TECHNIQUE: Routine helical CTA imaging was performed through the head. IV Contrast: 100 cc Isovue-300 . Reconstructions: Routine multiplanar 3D MIP reconstructions. Head CT without and with contrast. In accordance with CT protocol optimization, one or more of the following dose reduction techniques w ere utilized for this exam: automated exposure control, adjustment of mA and/or KV based on patient s ize, or use of iterative reconstructive technique. FINDINGS: Head CT without and with contrast: Appropriate CSF spaces for age. No space-occupying lesion, hemorrh age, extracerebral fluid collection, hydrocephalus, evidence of interval infarct or abnormal enhancem ent. Skull base and bone windows are unremarkable. Anterior Circulation: Both internal carotid arteries, anterior and middle cerebral arteries are paten t and unremarkable. There is a patent anterior communicating artery. Posterior Circulation: Right vertebral artery is slightly larger than the left. Basilar artery and maisha th posterior cerebral arteries are patent and unremarkable. Posterior communicating arteries are gregorio nt bilaterally, right is slightly larger than the left. Other: No major vessel stenosis, occlusion, aneurysm, dissection, thrombi or vascular malformation. Dural venous sinuses are patent and unremarkable. IMPRESSION: Head CT without and with contrast: No acute or focal intracranial abnormality. CT angiogram head: No significant abnormality identified. [facility] Referring Provider Line: [phone] SITE ID: [id number]
--- NOTE | 2016-11-25 02:50 | CT Preliminary Report ---
Exam: CT Neck Angio IMPRESSION: No carotid or vertebral artery stenosis in the neck. No findings of dissection. [facility] SITE ID: [id number]
--- NOTE | 2016-11-25 02:53 | CT Report ---
EXAM: CT ANGIOGRAM NECK EXAM DATE: 11/25/2016 12:30 AM. CLINICAL HISTORY: Global amnesia. COMPARISON: None. TECHNIQUE: Routine axial helical imaging was performed from the skull base through the aortic arch. I V Contrast: 100 cc Isovue-300. Reconstructions: Routine multiplanar 3D MIP reconstructions. Evaluatio n of arterial stenosis is based on a NASCET method of measurement. In accordance with CT protocol optimization, one or more of the following dose reduction techniques w ere utilized for this exam: automated exposure control, adjustment of mA and/or KV based on patient s ize, or use of iterative reconstructive technique. FINDINGS: Aortic arch and origins of the great vessels are patent. Brachiocephalic and both subclavian arteries are patent. Right Carotid: The common carotid, internal carotid, and external carotid arteries are widely patent. No dissection, significant atherosclerotic plaque, or calcification identified. Left Carotid: The common carotid, internal carotid, and external carotid arteries are widely patent. No dissection, significant atherosclerotic plaque, or calcification identified. Vertebrals: Both vertebral arteries are patent throughout the neck. Intracranial Circulation: No significant abnormality. Other: Degenerative changes in the cervical spine, most pronounced at C5-C6. Lung apices are clear. N o mass or significant adenopathy identified in the neck. IMPRESSION: No carotid or vertebral artery stenosis in the neck. No findings of dissection. [facility] Referring Provider Line: [phone] SITE ID: [id number]
[2016-11-25] MEDS: SODIUM CHLORIDE FLUSH 0.9% 10 ML SYRINGE IVP SCH ×2 (06:42→14:41)
[2016-11-25 06:56] LABS: CHOL/HDL RATIO 5.2 (<4.4); CHOLESTEROL 206 mg/dL; HDL CHOLESTEROL 40 mg/dL; LDL/HDL RATIO 3.1 (<4.4); TRIGLYCERIDES 211 mg/dL; VLDL CHOLESTEROL 42 mg/dL
[2016-11-25] MEDS ORDERED: LEVOTHYROXINE 25 MCG TABLET PO SCH (07:00)
[2016-11-25] MEDS ORDERED: LEVOTHYROXINE 112 MCG TABLET PO SCH (07:00)
--- NOTE | 2016-11-25 07:29 | PROVIDER PROGRESS NOTE ---
Assessment/Plan - Problem List (2) Hyperlipidemia Qualifiers: Hyperlipidemia type: pure hypercholesterolemia Qualified Code(s): E78.00 - Pure hypercholesterolemia, unspecified; E78.0 - Pure hypercholesterolemia - Current Meds Current Meds: Current Medications Generic Name Dose Route Start Last Admin Trade Name Hugo PRN Reason Stop Dose Admin Levothyroxine Sodium 112 mcg 11/25/16 07:00 11/25/16 06:42 Synthroid PO 112 mcg QDAC ESTEFANIA Administration Levothyroxine Sodium 25 mcg 11/25/16 07:00 11/25/16 06:42 Synthroid PO 25 mcg QDAC ESTEFANIA Administration Sodium Chloride 10 ml 11/24/16 23:00 11/25/16 06:42 Normal Saline Flush 0.9% IVP 20 ml Q8HR ESTEFANIA Administration - Lab Result Fish Bone Diagrams: 11/24/16 17:00 11/24/16 17:00 Objective Vital Signs: Vital Signs - 24 hr 11/24/16 11/24/16 11/24/16 22:28 22:30 22:35 Temperature 37.0 C Heart Rate 71 Heart Rate [ 74 Brachial] Respiratory 16 18 Rate Blood Pressure 116/71 Blood Pressure 87/69 L 101/52 L [Left Brachial artery] O2 Saturation 99 95 11/25/16 04:22 Temperature 36.4 C L Heart Rate Heart Rate [ 72 Brachial] Respiratory 16 Rate Blood Pressure Blood Pressure 99/65 [Left Brachial artery] O2 Saturation 93 Oxygen O2 Source Room air I&O (Last 24 Hrs): Intake and Output Totals x24h 11/23/16 11/24/16 11/25/16 23:59 23:59 23:59 Intake Total 200 150 Balance 200 150 - Results Results: Laboratory Results WBC 8.1 x10^3/uL (4.8-10.8) 11/24/16 17:00 RBC 4.31 10^6/uL (4.20-5.40) 11/24/16 17:00 Hgb 14.3 g/dL (12.0-16.0) 11/24/16 17:00 Hct 41.7 % (37.0-47.0) 11/24/16 17:00 MCV 96.8 fL (81.0-99.0) 11/24/16 17:00 MCH 33.2 pg (27.0-31.0) H 11/24/16 17:00 MCHC 34.3 g/dL (32.0-36.0) 11/24/16 17:00 RDW 12.9 % (12.0-15.0) 11/24/16 17:00 Plt Count 399 10^3/uL (130-450) 11/24/16 17:00 MPV 6.5 fL (7.9-10.8) L 11/24/16 17:00 Neut # 5.5 10^3/uL (1.5-6.6) 11/24/16 17:00 Lymph # 1.6 10^3/uL (1.5-3.5) 11/24/16 17:00 [place] # 0.6 10^3/uL (0.0-1.0) 11/24/16 17:00 Eos # 0.2 10^3/uL (0.0-0.7) 11/24/16 17:00 Baso # 0.1 10^3/uL (0.0-0.1) 11/24/16 17:00 Absolute Nucleated RBC 0.00 x10^3/uL 11/24/16 17:00 Nucleated RBCs 0.0 /100WBC 11/24/16 17:00 Sodium 137 mmol/L (135-145) 11/24/16 17:00 Potassium 4.3 mmol/L (3.5-5.0) 11/24/16 17:00 Chloride 101 mmol/L (101-111) 11/24/16 17:00 Carbon Dioxide 26 mmol/L (21-32) 11/24/16 17:00 Anion Gap 10.0 (6-13) 11/24/16 17:00 BUN 21 mg/dL (6-20) H 11/24/16 17:00 Creatinine 0.9 mg/dL (0.4-1.0) 11/24/16 17:00 Estimated GFR (MDRD) 61 (>89) L 11/24/16 17:00 Glucose 92 mg/dL (70-100) 11/24/16 17:00 Calcium 9.5 mg/dL (8.5-10.3) 11/24/16 17:00 Triglycerides 211 mg/dL (-149) H 11/25/16 06:30 Cholesterol 206 mg/dL (-199) H 11/25/16 06:30 LDL Cholesterol, Calc 124 mg/dL (-129) 11/25/16 06:30 VLDL Cholesterol 42 mg/dL 11/25/16 06:30 HDL Cholesterol 40 mg/dL (60-) L 11/25/16 06:30 LDL/HDL Ratio 3.1 (<4.4) 11/25/16 06:30 Cholesterol/HDL Ratio 5.2 (<4.4) 11/25/16 06:30 Urine Color YELLOW 11/24/16 18:00 Urine Clarity CLEAR (CLEAR) 11/24/16 18:00 Urine pH 6.0 PH (5.0-7.5) 11/24/16 18:00 Ur Specific [place] 1.010 (1.002-1.030) 11/24/16 18:00 Urine Protein NEGATIVE mg/dL (NEGATIVE) 11/24/16 18:00 Urine Glucose (UA) NEGATIVE mg/dL (NEGATIVE) 11/24/16 18:00 Urine Ketones NEGATIVE mg/dL (NEGATIVE) 11/24/16 18:00 Urine Occult Blood NEGATIVE (NEGATIVE) 11/24/16 18:00 Urine Nitrite NEGATIVE (NEGATIVE) 11/24/16 18:00 Urine Bilirubin NEGATIVE (NEGATIVE) 11/24/16 18:00 Urine Urobilinogen 0.2 (NORMAL) E.U./dL (NORMAL) 11/24/16 18:00 Ur Leukocyte Esterase TRACE (NEGATIVE) H 11/24/16 18:00 Urine RBC 0-5 /HPF (0-5) 11/24/16 18:00 Urine WBC 6-10 /HPF (0-5) H 11/24/16 18:00 Ur Squamous Epith Cells MOD Squamous (<= Few) H 11/24/16 18:00 Urine Bacteria None Seen /HPF (None Seen) 11/24/16 18:00 Ur Microscopic Review INDICATED 11/24/16 18:00 Urine Culture Comments NOT INDICATED 11/24/16 18:00 - Procedures Procedures: Procedures INSPECTION OF LOWER INTESTINAL TRACT, ENDO (08/30/15)
[2016-11-25] MEDS ORDERED: VENLAFAXINE 37.5 MG TABLET PO SCH ×2 (09:00)
[2016-11-25] MEDS ORDERED: METOPROLOL SUCCINATE 50 MG TABLET PO SCH ×3 (09:00→10:39)
[2016-11-25] MEDS ORDERED: PRAVASTATIN 10 MG TABLET PO SCH ×2 (09:00→21:00)
[2016-11-25] MEDS ORDERED: PRAVASTATIN SODIUM 20 MG PO SCH (09:00)
[2016-11-25] MEDS ORDERED: NON FORMULARY MED (Levothyroxine Sodium [Levothyroxine Sodium] 137 MCG) PO SCH ×2 (09:00)
[2016-11-25] MEDS ORDERED: POLYETHYLENE GLYCOL 3350 17 GM PACKET PO SCH ×2 (09:00)
[2016-11-25 15:27] VITALS: BP 114/64
--- NOTE | 2016-11-25 15:58 | MRI Preliminary Report ---
Exam: MRI Brain W/O Impression: 1. A mild amount of white matter disease is identified as described. The findings are relatively nons pecific, however, this most likely represents chronic microangiopathy. 2. No other significant intracranial findings on this unenhanced brain MRI. Ventricular, no evidence of infarction, hemorrhage or other acute brain pathology. 3. There is a small amount of fluid in the right mastoid air cells of uncertain etiology but is of do ubtful clinical significance. The possibility of active infection is considered unlikely (please see above). SITE ID: [id number]
--- NOTE | 2016-11-25 16:17 | Discharge Plan ---
Discharge Plan Disposition: Home, Self Care Condition: Good Prescriptions: Aspirin [Aspirin EC] 162 mg PO DAILY #30 tablet. Diet: Cardiac Activity Restrictions: see discharge instruction Weight Bearing: Full Weight Additional Instructions or Follow Up instructions: see your PCP in a week for follow up; schedule outpatient EEG per neurology recommendation don't drive until evaluation is completed. and don't use stove if no family members around monitor your blood pressure and heart rate at home, show the result to your doctor. your metoprolol was decreased because your heart rate was slow and BP was on low side. your doctgor will adjust your medications accordingly take aspirin as you have done at home if you feel very sick, see your doctor soon or come to ED No Smoking: If you smoke, Please STOP! Call for help. Follow-up with: Alyssa Ross PA-C [Primary Care Provider] -
--- NOTE | 2016-11-25 16:54 | DISCHARGE SUMMARY ---
Discharge Summary Admit Date: 11/24/16 Discharge Date: 11/25/16 Discharging Provider: CLAUDINE May Primary Care Provider: Dr. Buddy Underwood Code Status: Attempt Resuscitation Condition at Discharge: Good Discharge Disposition: 01 Home, Self Care - DIAGNOSES Admission Diagnoses: Amnesia TIA hyperlipidemia Hypertension hypothyroidism tobacco dependence, uncomplicated Discharge Diagnoses with Status of Each Condition: Amnesia, possible TIA-- resolved: negative MRI of brain, as well as CTA of head and neck; outpatient EET recommended; f/u with PCP Hypertension--controlled; noted bradycardiac with borderline BP; metoprolol dose was decreased hyperlipidemia--stable; on statin hypothyroidism--stable; continue home medicine tobacco dependence-- smoking cessation was given - HPI History of Present Illness: patient with history of HTN, HLP came to ED because her daughter found her mom unable to remember anything. Repetitive questions. There were no focal symptoms of loss of strength or aphasia or visual changes or headache. patient was seen in the emergency room by Dr. Trish Joaquin and CT of the head was negative with a normal CBC/BMP/urinalysis. The patient was placed in observation. please see details on H and P done by Dr. Demetra Bolivar - HOSPITAL COURSE Hospital Course: In Ed, [place] neurology was contacted, who recommended MRI of brain; if negative, consider EEG as outpatient to rule out possible seizure activities. patient has not had new neuro-deficits during the hospital stay. her MRI of brain shows no acute stroke. her echocadiogram is also unremarkable. she has been on tele, no arrhythmia noted. she had bradycardiac noted as well as borderline blood pressure. her metoprolol dose was decreased to 25 mg daily. patient was seen today; discharge plan was discussed with her and her daughter. PCP was contacted for outpatient follow up. questions and concerns were answered. - ALLERGIES Allergies/Adverse Reactions: Allergies Allergy/AdvReac Type Severity Reaction Status Date / Time codeine Allergy Nausea Verified 11/24/16 16:46 carola Allergy Severe Unknown Uncoded 11/24/16 16:46 - MEDICATIONS Home Medications: Ambulatory Orders Medication Instructions Recorded Confirmed Levothyroxine Sodium 137 mcg PO DAILY 08/29/15 11/24/16 Pravastatin Sodium 20 mg PO DAILY 08/29/15 11/24/16 Venlafaxine HCl 37.5 mg PO BID 05/12/16 08/09/17 Aspirin [Aspirin EC] 162 mg PO DAILY #30 tablet. 11/25/16 Metoprolol Succinate 25 mg PO DAILY #0 11/25/16 11/24/16 - PHYSICAL EXAM AT DISCHARGE General Appearance: positive: No acute distress, Alert Eyes Bilateral: positive: Normal inspection, PERRL, EOMI ENT: positive: Pharynx nml, No signs of dehydration Neck: positive: Nml inspection, Thyroid nml, No JVD Respiratory: positive: Chest non-tender, No respiratory distress, Breath sounds nml Cardiovascular: positive: Regular rate & rhythm, No murmur Peripheral Pulses: positive: 2+ Abdomen: positive: Non-tender, Nml bowel sounds, No distention Back: positive: Nml inspection Skin: positive: Color nml, No rash, Warm, Dry Extremities: positive: Full ROM, Nml appearance Neurologic/Psychiatric: positive: Oriented x3, Motor nml, Sensation nml - LABS Result Diagrams: 11/24/16 17:00 11/24/16 17:00 - DIAGNOSTIC IMAGING Diagnostic Imaging Results: Prelim report reviewed, Final report reviewed Diagnostic Imaging Results Comments: CTA of neck and Head: MRI of brain 11/25/16-- mild amount of white matter disease; likely chronic microangiopathy; no evidence of infarction, hemorrhage or acute brain pathology ; small amount of fluid in right mastoid air cells of uncertain etiology; the possibility of active infectionis considered unlikely CT of head - FOLLOW UP Follow Up: PCP in a week; outpatient EEG - TIME SPENT Time Spent in Discharge (Minutes): 37
--- NOTE | 2016-11-25 17:14 | MRI Report ---
MRI BRAIN WITHOUT CONTRAST CLINICAL HISTORY: 76-year-old female with acute onset of global amnesia. Please assess. COMPARISON: Head CT and CT angiogram 11/25/2016. TECHNIQUE: 1. T1 sagittal and fat-saturated T2 coronal. 2. Axial T1 MP RAGE, FLAIR, T2, T2*, and DWI. FINDINGS: There is mild generalized prominence of the cerebral cortical sulci and third and lateral ventricles, considered well within normal limits for stated age. A mild amount of white matter disease is identified in the supratentorial brain, manifested as focal and confluent T2 hyperintensities that are scattered throughout the periventricular, deep, and subcor tical white matter bilaterally. A frontoparietal distribution predominates. There is hazy patchy T2 h yperdensity in the jennifer bilaterally. Signal intensity of cortex and white matter is otherwise unremar kable. In particular, no abnormal T12 hyperintensity is seen in either hippocampus. There appear to be flow voids for the main intracranial arteries. No abnormal diffusion restriction i s demonstrated. Noted is absence of abnormal diffusion restriction in the hippocampi. No evidence of acute or chronic hemorrhage on T2* GRE sequence. No abnormal extra-axial fluid collect ion. No mass effect or midline shift. Limited evaluation of the orbits reveals no gross pathology. Changes of previous ocular lens extracti on are noted. A small amount of fluid is identified in the right mastoid of uncertain etiology, but of doubtful cli nical significance. No soft tissue swelling is identified overlying the right mastoid to suggest the possibility of active infection. In addition, there is no evidence of an obstructing nasopharyngeal m ass. No other mastoid or middle ear effusion is demonstrated. The paranasal sinuses appear clear. Marrow signal intensity of the regional skeletal structures is unremarkable. IMPRESSION: 1. A mild amount of white matter disease is identified as described. The findings are relatively nons pecific; however, this most likely represents chronic microangiopathy. 2. No other significant intracranial findings on this unenhanced brain MRI. In particular, no evidenc e of infarction, hemorrhage or other acute brain pathology. 3. There is a small amount of fluid in the right mastoid air cells of uncertain etiology, but of doub tful clinical significance. The possibility of active infection is deemed considered unlikely (please see above). Referring Provider Line: [phone] SITE ID: [id number]
[2016-11-26] MEDS ORDERED: ASPIRIN EC 325 MG TABLET PO SCH (09:00)
== END 2016-11-25 17:38 | disposition home or self-care (01) ==
LOC: ED 16:33 → OBS 21:33 → ED 22:10
PROVIDERS: ADMIT Specialist; ATTEND Nurse Practitioner
DX: G45.4 Transient global amnesia (principal); I10 Essential (primary) hypertension; E78.00 Pure hypercholesterolemia, unspecified; E03.9 Hypothyroidism, unspecified; R00.1 Bradycardia, unspecified; K58.1 Irritable bowel syndrome with constipation; F32.9 Major depressive disorder, single episode, unspecified; F41.0 Panic disorder [episodic paroxysmal anxiety]; F17.210 Nicotine dependence, cigarettes, uncomplicated; Z66 Do not resuscitate; Z86.73 Personal history of transient ischemic attack (TIA), and cerebral infarction without residual deficits; Z71.6 Tobacco abuse counseling
CPT/HCPCS: 36415; 70450; 70496; 70498; 70551; 71020; 80048; 80061; 81001; 85025; 93005; 99284; A9270; G0378; Q9967; 81003; 87086

== ENCOUNTER 2016-11-30 13:27 | Outpatient (CLI) | payer MEDICARE, OTHER ==
--- NOTE | 2016-11-30 15:00 | Ultrasound Report ---
ULTRASOUND OF RIGHT BREAST: 11/30/2016 CLINICAL INDICATION: Possible asymmetry on mammogram. TECHNIQUE: Real-time scanning was performed with labor representative static images obtained. FINDINGS: Ultrasound of the right inferior breast was performed. No sonographically suspicious findings are identified. No discrete solid or cystic mass is seen. IMPRESSION: NEGATIVE EXAMINATION. RECOMMENDATION: ROUTINE ANNUAL SCREENING UNLESS OTHERWISE CLINICALLY INDICATED. BIRADS CATEGORY 1-NEGATIVE. JOB #: [id number] EXT JOB #:
--- NOTE | 2016-11-30 15:15 | Mammography Report ---
DIGITAL DIAGNOSTIC RIGHT MAMMOGRAM: 11/30/2016 CLINICAL INDICATION: Asymmetry right 6 o'clock position. TECHNIQUE: Right true lateral and spot compression views. COMPARISON: 11/03/2016, 11/04/2015, 11/09/2014, 03/07/2013, 01/06/2012 FINDINGS: The right breast again demonstrates heterogeneously dense fibroglandular parenchyma. The asymmetry in the inferior right breast appears less prominent on spot compression views. Coarse, typ ically benign calcifications are present. Please also refer to right breast ultrasound of the same d ay. IMPRESSION: BENIGN FINDINGS. RECOMMENDATION: Routine annual screening unless otherwise clinically indicated. BIRADS CATEGORY 2 - BENIGN FINDINGS. STANDARD QUALIFYING STATEMENTS 1. This examination was reviewed with the aid of Computer-Aided Detection (CAD). 2. A negative or benign imaging report should not delay biopsy if clinically suspicious findings are present. Consider surgical consultation if warranted. More than 5% of cancers are not identified by i maging. 3. Dense breasts may obscure an underlying neoplasm. JOB #: [id number] EXT JOB #:[id number]
== END 2016-11-30 13:28 | disposition home or self-care (01) ==
LOC: DI 13:27
PROVIDERS: ATTEND Physician Assistant Medical
DX: R92.8 Other abnormal and inconclusive findings on diagnostic imaging of breast (principal)
CPT/HCPCS: 76642; G0206

== ENCOUNTER 2016-12-09 14:40 | Outpatient (CLI) | payer MEDICARE, OTHER ==
[2016-12-09 17:41] LABS: BASOPHILS # (AUTO) 0.1 10^3/uL (0.0-0.1); BASOPHILS % (AUTO) 1.2 %; EOSINOPHILS # (AUTO) 0.4 10^3/uL (0.0-0.7); EOSINOPHILS % (AUTO) 5.8 %; HCT - HEMATOCRIT 39.9 % (37.0-47.0); HGB - HEMOGLOBIN 13.4 g/dL (12.0-16.0); MEAN CORPUSCULAR HGB CONC 33.5 g/dL (32.0-36.0); MEAN CORPUSCULAR VOLUME 98.4 fL (81.0-99.0); MEAN PLATELET VOLUME 7.1 fL (7.9-10.8); MONOCYTES # (AUTO) 0.5 10^3/uL (0.0-1.0); MONOCYTES % (AUTO) 8.2 %; NEUTROPHILS # (AUTO) 3.5 10^3/uL (1.5-6.6); NEUTROPHILS % (AUTO) 53.8 %; RED BLOOD COUNT 4.06 10^6/uL (4.20-5.40); RED CELL DISTRIBUTION WIDTH 12.9 % (12.0-15.0); UNCORRECTED WHITE BLOOD COUNT 6.6 x10^3/uL; WHITE BLOOD COUNT 6.6 x10^3/uL (4.8-10.8)
[2016-12-09 18:13] LABS: ALBUMIN/GLOBULIN RATIO 1.6 (1.0-2.2); BILIRUBIN,TOTAL 0.5 mg/dL (0.2-1.0); BUN - BLOOD UREA NITROGEN 19 mg/dL (6-20); CALCIUM 9.1 mg/dL (8.5-10.3); CARBON DIOXIDE - CO2 26 mmol/L (21-32); CHLORIDE 105 mmol/L (101-111); CHOL/HDL RATIO 4.2 (<4.4); CHOLESTEROL 194 mg/dL; CREATININE 0.7 mg/dL (0.4-1.0); GFR - MDRD 82 (>89); GLUCOSE 83 mg/dL (70-100); HDL CHOLESTEROL 46 mg/dL; LDL/HDL RATIO 2.4 (<4.4); POTASSIUM 3.7 mmol/L (3.5-5.0); SODIUM 138 mmol/L (135-145); TOTAL PROTEIN 6.7 g/dL (6.7-8.2); TRIGLYCERIDES 195 mg/dL; VLDL CHOLESTEROL 39 mg/dL
== END 2016-12-09 14:41 | disposition home or self-care (01) ==
LOC: LAB.F 14:40
PROVIDERS: ATTEND Internal Medicine
DX: R00.0 Tachycardia, unspecified (principal); E78.00 Pure hypercholesterolemia, unspecified; E03.9 Hypothyroidism, unspecified
CPT/HCPCS: 36415; 80053; 80061; 84443; 85025

== ENCOUNTER 2017-01-21 08:29 | Outpatient (CLI) | payer MEDICARE, OTHER ==
[2017-01-21 12:53] LABS: CHOL/HDL RATIO 3.7 (<4.4); CHOLESTEROL 162 mg/dL; HDL CHOLESTEROL 44 mg/dL; LDL/HDL RATIO 1.7 (<4.4); TRIGLYCERIDES 221 mg/dL; VLDL CHOLESTEROL 44 mg/dL
== END 2017-01-21 08:30 | disposition home or self-care (01) ==
LOC: LAB.F 08:29
PROVIDERS: ATTEND Internal Medicine
DX: E78.00 Pure hypercholesterolemia, unspecified (principal); E53.8 Deficiency of other specified B group vitamins
CPT/HCPCS: 36415; 80061; 82607; 84460

== ENCOUNTER 2017-06-27 09:31 | Emergency (ER) | payer MEDICARE, OTHER ==
--- NOTE | 2017-06-27 10:07 | ED Physician Documentation ---
History of Present Illness - Stated complaint Stated Complaint: FEVER - Chief complaint Chief Complaint: Fever - Additonal information Additional information: hx from pt 76 female 3 days of fever to 101.9 chills myalgias fatigue cough weakness no NVD no travel no sick contacts no travel Review of Systems Constitutional: reports: Fever, Chills, Myalgias Cardiac: denies: Chest pain / pressure Respiratory: reports: Cough GI: denies: Abdominal Pain, Nausea, Vomiting, Diarrhea Neurologic: reports: Generalized weakness Immunocompromised: denies: Immunocompromised PD PAST MEDICAL HISTORY - Past Medical History Cardiovascular: High cholesterol, Arrhythmia, Other Respiratory: None Neuro: None Endocrine/Autoimmune: HyPOthyroidism GI: None MANAGER BRAND: None : None HEENT: None Psych: Depression, Anxiety, Panic attacks Musculoskeletal: Osteoarthritis Derm: None - Past Surgical History Past Surgical History: Yes General: Appendectomy, Colonoscopy /MANAGER BRAND: section, Hysterectomy HEENT: Cataracts - Present Medications Home Medications: Ambulatory Orders Medication Instructions Recorded Confirmed Levothyroxine Sodium 137 mcg PO DAILY 08/29/15 11/24/16 Pravastatin Sodium 20 mg PO DAILY 08/29/15 11/24/16 Venlafaxine HCl 37.5 mg PO BID 08/29/15 11/25/16 Aspirin [Aspirin EC] 162 mg PO DAILY #30 tablet. 11/25/16 Metoprolol Succinate 25 mg PO DAILY #0 11/25/16 11/24/16 Benzonatate [Tessalon] 100 mg PO TID PRN #20 capsule 06/27/17 guaiFENesin/DEXTROMETHORPHAN 10 ml PO Q6H PRN #120 ml 06/27/17 [Robitussin Dm] - Allergies Allergies/Adverse Reactions: Allergies Allergy/AdvReac Type Severity Reaction Status Date / Time codeine Allergy Nausea Verified 06/27/17 09:37 carola Allergy Severe Unknown Uncoded 06/27/17 09:37 - Social History Does the pt smoke?: Yes Smoking Status: Current every day smoker Does the pt drink ETOH?: No Does the pt have substance abuse?: No - Immunizations Immunizations are current?: Yes - POLST Patient has POLST: No POLST Status: DNR (although she has no POLST states she wishes to be DNR if has cardiopulmonary arrest. Daughter confirms wishes.) PD ED PE NORMAL - Vitals Vital signs reviewed: Yes - General General: Alert and oriented X 3 - HEENT HEENT: PERRL - Neck Neck: Supple, no meningeal sign - Cardiac Cardiac: RRR - Respiratory Respiratory: No respiratory distress, Clear bilaterally - Abdomen Abdomen: Soft, Non tender - Derm Derm: Normal color - Extremities Extremities: No edema, No calf tenderness / cord - Neuro Neuro: Alert and oriented X 3 Results - Vitals Vitals: Vital Signs - 24 hr 06/27/17 09:33 Temperature 36.8 C Heart Rate 108 H Respiratory 22 Rate Blood Pressure 109/64 O2 Saturation 94 Oxygen O2 Source Room air - Labs Labs: Laboratory Tests 06/27/17 06/27/17 06/27/17 10:13 10:13 10:13 WBC 4.6 L RBC 4.21 Hgb 14.0 Hct 40.7 MCV 96.7 MCH 33.2 H MCHC 34.3 RDW 13.3 Plt Count 249 MPV 6.4 L Neut # 2.7 Lymph # 1.0 L [place] # 0.9 Eos # 0.0 Baso # 0.0 Absolute Nucleated RBC 0.00 Nucleated RBC % 0.0 Sodium 134 L Potassium 3.9 Chloride 101 Carbon Dioxide 22 Anion Gap 11.0 BUN 14 Creatinine 0.8 Estimated GFR (MDRD) 70 L Glucose 102 H Lactic Acid 1.1 Calcium 8.7 Influenza A (Rapid) Influenza B (Rapid) Influenza Types A,B Ag 06/27/17 10:13 WBC RBC Hgb Hct MCV MCH MCHC RDW Plt Count MPV Neut # Lymph # [place] # Eos # Baso # Absolute Nucleated RBC Nucleated RBC % Sodium Potassium Chloride Carbon Dioxide Anion Gap BUN Creatinine Estimated GFR (MDRD) Glucose Lactic Acid Calcium Influenza A (Rapid) Negative Influenza B (Rapid) POSITIVE H Influenza Types A,B Ag + H - Rads (name of study) CXR Radiology: See rad report (NACPD) PD MEDICAL DECISION MAKING - ED course ED course: You do not have pneumonia But you do have influenza Unfortunately you ahve been sick for three days already so the tamiflu medication will not help at this point But I did prescribe medications to help ease your symptoms while you recover. You may be sick for up to 2 weeks with the flu. You need to rest and take it easy and drink plenty of fluids One of the dangerous complications of the flu is a secondary infection such as pneumonia - if you suddenly get worse, please come back to the ER to be rechecked Departure - Departure Disposition: 01 Home, Self Care Clinical Impression: Influenza B Condition: Good Instructions: ED Flu Follow-Up: Augusto Peng MD [Primary Care Provider] - Prescriptions: Benzonatate [Tessalon] 100 mg PO TID PRN #20 capsule PRN Reason: to ease cough guaiFENesin/DEXTROMETHORPHAN [Robitussin Dm] 10 ml PO Q6H PRN #120 ml PRN Reason: Cough Comments: You do not have pneumonia But you do have influenza Unfortunately you ahve been sick for three days already so the tamiflu medication will not help at this point But I did prescribe medications to help ease your symptoms while you recover. You may be sick for up to 2 weeks with the flu. You need to rest and take it easy and drink plenty of fluids One of the dangerous complications of the flu is a secondary infection such as pneumonia - if you suddenly get worse, please come back to the ER to be rechecked
[2017-06-27] MEDS ORDERED: ACETAMINOPHEN 325 MG TABLET PO STA (10:13)
[2017-06-27] MEDS ORDERED: BENZONATATE 100 MG CAPSULE PO STA (10:13)
[2017-06-27] MEDS ORDERED: guaiFENesin/DEXTROMETHORPHAN 10 ML UDC PO STA (10:13)
[2017-06-27 10:23] LABS: BASOPHILS % (AUTO) 0.8 %; EOSINOPHILS % (AUTO) 0.3 %; LYMPHOCYTES % (AUTO) 21.6 %; MEAN CORPUSCULAR HEMOGLOBIN 33.2 pg (27.0-31.0); MEAN CORPUSCULAR HGB CONC 34.3 g/dL (32.0-36.0); MEAN CORPUSCULAR VOLUME 96.7 fL (81.0-99.0); MEAN PLATELET VOLUME 6.4 fL (7.9-10.8); MONOCYTES # (AUTO) 0.9 10^3/uL (0.0-1.0); MONOCYTES % (AUTO) 18.6 %; NEUTROPHILS # (AUTO) 2.7 10^3/uL (1.5-6.6); NEUTROPHILS % (AUTO) 58.7 %; PLT - PLATELET COUNT 249 10^3/uL (130-450); RED BLOOD COUNT 4.21 10^6/uL (4.20-5.40); RED CELL DISTRIBUTION WIDTH 13.3 % (12.0-15.0); WHITE BLOOD COUNT 4.6 x10^3/uL (4.8-10.8)
[2017-06-27 10:36] LABS: CALCIUM 8.7 mg/dL (8.5-10.3); CREATININE 0.8 mg/dL (0.4-1.0)
--- NOTE | 2017-06-27 10:46 | XRAY Report ---
EXAM: CHEST RADIOGRAPHY EXAM DATE: 06/27/2017 10:26 AM. CLINICAL HISTORY: Fever and cough. COMPARISON: 12/19/2015 and 11/24/2016. TECHNIQUE: 2 views. FINDINGS: Lungs/Pleura: Mild hyperinflation, as before. No focal opacities evident. No pleural effusion. No pne umothorax. Mediastinum: Heart and mediastinal contours are unremarkable. Other: None. IMPRESSION: 1. No acute abnormality identified. 2. Mild hyperinflation. [facility] Referring Provider Line: [phone] SITE ID: [id number]
[2017-06-27 11:21] VITALS: BP 101/56
== END 2017-06-27 11:22 | disposition home or self-care (01) ==
LOC: ED 09:31
DX: J10.1 Influenza due to other identified influenza virus with other respiratory manifestations (principal); E78.00 Pure hypercholesterolemia, unspecified; E03.9 Hypothyroidism, unspecified; F17.200 Nicotine dependence, unspecified, uncomplicated
CPT/HCPCS: 36415; 71046; 80048; 83605; 85025; 87040; 87275; 87276; 99283; A9270

== ENCOUNTER 2017-09-20 07:57 | Outpatient (CLI) | payer MEDICARE, OTHER ==
[2017-09-20 11:53] LABS: ALBUMIN/GLOBULIN RATIO 1.3 (1.0-2.2); ALKALINE PHOSPHATASE 81 IU/L (42-121); ALT ALANINE AMINOTRANSFERASE 21 IU/L (10-60); AST ASPARTATE AMINOTRANSFERASE 30 IU/L (10-42); BILIRUBIN,TOTAL 0.4 mg/dL (0.2-1.0); BUN - BLOOD UREA NITROGEN 18 mg/dL (6-20); CALCIUM 9.1 mg/dL (8.5-10.3); CARBON DIOXIDE - CO2 28 mmol/L (21-32); CHLORIDE 102 mmol/L (101-111); CHOL/HDL RATIO 3.7 (<4.4); CHOLESTEROL 164 mg/dL; CREATININE 0.8 mg/dL (0.4-1.0); GFR - MDRD 70 (>89); GLUCOSE 97 mg/dL (70-100); HDL CHOLESTEROL 44 mg/dL; LDL CHOLESTEROL,CALCULATED 98 mg/dL; LDL/HDL RATIO 2.2 (<4.4); SODIUM 136 mmol/L (135-145); TOTAL PROTEIN 7.1 g/dL (6.7-8.2); VLDL CHOLESTEROL 22 mg/dL
== END 2017-09-20 07:58 | disposition home or self-care (01) ==
LOC: LAB.F 07:57
PROVIDERS: ATTEND Internal Medicine
DX: E78.00 Pure hypercholesterolemia, unspecified (principal); E03.9 Hypothyroidism, unspecified
CPT/HCPCS: 36415; 80053; 80061; 83721; 84443

== ENCOUNTER 2017-11-01 10:30 | Outpatient (CLI) | payer MEDICARE, OTHER | END 2017-11-01 10:31 | disposition home or self-care (01) | LOC: LAB.R 10:30 | PROVIDERS: ATTEND Physician Assistant Medical | DX: N30.90 Cystitis, unspecified without hematuria (principal) | CPT/HCPCS: 87086 ==